=== PATIENT | female | born 1990 | race Caucasian/White ===

== ENCOUNTER 2025-02-24 10:48 | Observation (INO) | payer BC ==
[2025-02-24] MEDS ORDERED: RX INFO: IV CONTRAST WAS GIVEN 1 EACH MISC MISCELLANE PRN (11:27)
[2025-02-24] MEDS: PROPARACAINE 0.5% OPHTH DROPS 15 ML BTL LEFT EYE STA (11:34)
[2025-02-24] MEDS: FLUORESCEIN STRIPS 1 MG STRIP LEFT EYE ONE (11:34)
[2025-02-24 11:59] LABS: Basophils # (A) 0.07 10*3/uL (0.00-0.10); Basophils % (A) 0.8 %; Eosinophils # (A) 0.15 10*3/uL (0.04-0.35); Eosinophils % (A) 1.8 %; HCT 41.2 % (37.2-46.3); HGB 13.8 g/dL (12.0-15.0); Lymphocytes # (A) 2.30 10*3/uL (0.90-5.00); Lymphocytes % (A) 27.1 %; MCH 29.7 pg (27.0-32.0); MCHC 33.5 g/dL (32.0-37.0); MCV 88.6 fL (80.0-97.0); Monocytes # (A) 0.77 10*3/uL (0.20-1.00); Monocytes % (A) 9.1 %; Neutrophils # (A) 5.18 10*3/uL (1.80-7.70); Neutrophils % (A) 60.8 %; Platelet Count 405 10*3/uL (140-440); RBC 4.65 10*6/uL (4.10-5.20); RDW 13.4 % (11.5-14.5); WBC 8.50 10*3/uL (4.50-10.00)
--- NOTE | 2025-02-24 12:06 | ED ---
Eye Problem HPI - General Chief complaint: Eye Problems Stated complaint: L eye pain Time Seen by Provider: 02/24/25 12:00 Source: patient, RN notes reviewed Mode of arrival: ambulatory Limitations: no limitations - History of Present Illness Initial comments: 34-year-old female presenting for evaluation of left-sided vision loss x 1 week. She was sent by [facility] for possible optic neuritis on the left side. She does endorse pain with left eye movement. Describes sensation as though she is "looking through stained-glass". States she has never had this before. Denies injury or trauma to the head. [facility] reported that patient has a left eye optic disc edema with vision of 20/200 and a left RAPD and a left eye central island on visual field testing. Her motility is full but with pain with movement in the left eye. Past medical history significant for insulin resistance on Wegovy. She does have a family history of significant autoimmune diseases including family members with rheumatoid, Crohn's, and psoriasis. - Related Data Allergies Allergy/AdvReac Type Severity Reaction Status Date / Time No Known Allergies Allergy Verified 02/24/25 11:10 Review of Systems ROS Statement: Those systems with pertinent positive or pertinent negative responses have been documented in the HPI. ROS Other: All systems not noted in ROS Statement are negative. Past Medical History Past Medical History: No Reported History Past Surgical History: Cholecystectomy Smoking Status: Never smoker General Exam Limitations: no limitations General appearance: alert, in no apparent distress Head exam: Present: atraumatic, normocephalic, normal inspection Eye exam: Present: PERRL, EOMI. Absent: normal appearance (Pupils dilated bilaterally however was given dilation drops at eye doctor prior to arrival), scleral icterus, conjunctival injection, periorbital swelling ENT exam: Present: normal exam, mucous membranes moist Respiratory exam: Present: normal lung sounds bilaterally. Absent: respiratory distress, wheezes, rales, rhonchi, stridor Cardiovascular Exam: Present: regular rate, normal rhythm, normal heart sounds. Absent: systolic murmur, diastolic murmur, rubs, gallop, clicks Neurological exam: Present: alert, oriented X3, CN II-XII intact Psychiatric exam: Present: normal affect, normal mood Skin exam: Present: warm, dry, intact, normal color. Absent: rash Course Vital Signs 02/24/25 02/24/25 11:07 15:06 Temperature 97.9 F Pulse Rate 85 94 Respiratory 16 16 Rate Blood Pressure 147/86 150/82 O2 Sat by Pulse 99 100 Oximetry Medical Decision Making - Medical Decision Making Was pt. sent in by a medical professional or institution (ROMULO Maria, MEDICAL STAFF SPECIALIST, urgent care, hospital, or long term...) When possible be specific @ -Sent by [facility] for suspicion for optic neuritis on the left side Did you speak to anyone other than the patient for history (EMS, parent, family, police, friend...)? What history was obtained from this source @ -No Did you review nursing and triage notes (agree or disagree)? Why? @ -I reviewed and agree with nursing and triage notes Were old charts reviewed (outside hosp., previous admission, EMS record, old EKG, old radiological studies, urgent care reports/EKG's, long term records)? Report findings @ -No old charts were reviewed Differential Diagnosis (chest pain, altered mental status, abdominal pain women, abdominal pain men, vaginal bleeding, weakness, fever, dyspnea, syncope, headac he, dizziness, GI bleed, back pain, seizure, CVA, palpatations, mental health, musculoskeletal)? @ -Optic neuritis, multiple sclerosis, retinal detachment, amaurosis fugax, arterial anterior ischemic optic neuropathy EKG interpreted by me (3pts min.). @ -None X-rays interpreted by me (1pt min.). @ -None done CT interpreted by me (1pt min.). @ -CT brain and orbits reveals no acute process U/S interpreted by me (1pt. min.). @ -None done What testing was considered but not performed or refused? (CT, X-rays, U/S, labs)? Why? @ -None What meds were considered but not given or refused? Why? @ -None Did you discuss the management of the patient with other professionals (professionals i.e. ROMULO Maria, MEDICAL STAFF SPECIALIST, lab, RT, psych nurse, social service agency director, industrial diamond polisher, teacher, law enforcement officer, case picker)? Give summary @ -I spoke with Dr. Andrade and Dr. Hutchison on-call neurologist who accepts admission Was smoking cessation discussed for >3mins.? @ -No Was critical care preformed (if so, how long)? @ -No Were there social determinants of health that impacted care today? How? (Homelessness, low income, unemployed, alcoholism, drug addiction, transportation, low edu. Level, literacy, decrease access to med. care, senior care, rehab)? @ -No Was there de-escalation of care discussed even if they declined (Discuss DNR or withdrawal of care, Hospice)? DNR status @ -No What co-morbidities impacted this encounter? (DM, HTN, Smoking, COPD, CAD, Cancer, CVA, ARF, Chemo, Hep., AIDS, mental health diagnosis, sleep apnea, mor bid obesity)? @ -None Was patient admitted / discharged? Hospital course, mention meds given and rou te, prescriptions, significant lab abnormalities, going to OR and other pertinent info. @ -Admitted. 34-year-old female sent from [facility] for suspicion of optic neuritis on the left side. States she has been experiencing progressive vision loss in the left eye x 1 week. Visual acuity 20/200 in the left eye. Fluorescein stain negative for uptake. Average intraocular pressure on the left side is 10. Lab work largely unremarkable. CT brain and orbits reveals no acute process. Patient will be admitted to medicine with neurology consult for multiple sclerosis rule out and IV steroids. Case was discussed with my ED attending Dr. Tapia. Undiagnosed new problem with uncertain prognosis? @ -No Drug Therapy requiring intensive monitoring for toxicity (Heparin, Nitro, Insulin, Cardizem)? @ -No Were any procedures done? @ -No Diagnosis/symptom? @ -Left sided vision loss Acute, or Chronic, or Acute on Chronic? @ -Acute Uncomplicated (without systemic symptoms) or Complicated (systemic symptoms)? @ -Uncomplicated Side effects of treatment? @ -No Exacerbation, Progression, or Severe Exacerbation? @ -No Poses a threat to life or bodily function? How? (Chest pain, USA, SC, pneumonia, PE, COPD, DKA, ARF, appy, cholecystitis, CVA, Diverticulitis, Homicidal, Suicidal, threat to staff... and all critical care pts) @ -Yes - Lab Data Result diagrams: 02/24/25 11:46 02/24/25 11:46 Lab Results 02/24/25 02/24/25 Range/Units 11:46 11:46 WBC 8.50 (4.50-10.00) 10*3/uL RBC 4.65 (4.10-5.20) 10*6/uL Hgb 13.8 (12.0-15.0) g/dL Hct 41.2 (37.2-46.3) % MCV 88.6 (80.0-97.0) fL MCH 29.7 (27.0-32.0) pg MCHC 33.5 (32.0-37.0) g/dL Plt Count 405 (140-440) 10*3/uL MPV 8.9 L (9.5-12.2) fL Immature Gran % (Auto) 0.4 % Neutrophils % 60.8 % Lymphocytes % 27.1 % Monocytes % 9.1 % Eosinophils % 1.8 % Basophils % 0.8 % Immature Gran # 0.03 (0.00-0.04) 10*3/uL Neutrophils # 5.18 (1.80-7.70) 10*3/uL Lymphocytes # 2.30 (0.90-5.00) 10*3/uL Monocytes # 0.77 (0.20-1.00) 10*3/uL Eosinophils # 0.15 (0.04-0.35) 10*3/uL Basophils # 0.07 (0.00-0.10) 10*3/uL Sodium 141 (137-145) mmol/L Potassium 4.6 (3.5-5.1) mmol/L Chloride 104 (98-107) mmol/L Carbon Dioxide 25 (22-30) mmol/L Anion Gap 12 mmol/L BUN 18 H (7-17) mg/dL Creatinine 0.62 (0.52-1.04) mg/dL Est GFR (CKD-EPI)AfAm >90 (>60 ml/min/1.73 sqM) Est GFR (CKD-EPI)NonAf >90 (>60 ml/min/1.73 sqM) Glucose 88 (74-99) mg/dL Calcium 9.3 (8.4-10.2) mg/dL Total Bilirubin 0.6 (0.2-1.3) mg/dL AST 49 H (14-36) U/L ALT 49 H (4-34) U/L Alkaline Phosphatase 99 (38-126) U/L C-Reactive Protein 0.8 (<1.0) mg/dL Total Protein 8.0 (6.3-8.2) g/dL Albumin 4.7 (3.5-5.0) g/dL HCG, Qual Not Detected Disposition Clinical Impression: Vision loss of left eye Disposition: ADMITTED IP TO THIS HOSP Referrals: Anastasiia New MD [Primary Care Provider] - 1-2 days Time of Disposition: 15:39
[2025-02-24 12:07] LABS: HCG,Qualitative Serum Not Detected
[2025-02-24 12:12] LABS: ALT 49 U/L (4-34); African American GFR (CKD) >90 (>60 ml/min/1.73 sqM); Albumin 4.7 g/dL (3.5-5.0); Anion Gap 12 mmol/L; Blood Urea Nitrogen 18 mg/dL (7-17); Calcium 9.3 mg/dL (8.4-10.2); Carbon Dioxide 25 mmol/L (22-30); Chloride 104 mmol/L (98-107); Glucose 88 mg/dL (74-99); Non-African American GFR(CKD) >90 (>60 ml/min/1.73 sqM); Sodium 141 mmol/L (137-145); Total Protein 8.0 g/dL (6.3-8.2)
[2025-02-24 12:27] LABS: AST 49 U/L (14-36); Alkaline Phosphatase 99 U/L (38-126); Potassium 4.6 mmol/L (3.5-5.1)
--- NOTE | 2025-02-24 13:31 | CT ---
EXAMINATION TYPE: CT brain wo con DATE OF EXAM: 02/24/2025 COMPARISON: None CLINICAL INDICATION: Female, 34 years old with history of unilateral vision loss; PHH, 1097.8 CT DLP: 1097.8 mGycm Automated exposure control for dose reduction was used. Findings: The ventricles, basal cisterns and sulci over the convexities are within normal limits and there is n o mass effect or shift of midline structures. No abnormal density is seen throughout the brain parenchyma and there is no acute intra or extra-axia l hemorrhage. The posterior fossa including the brainstem, fourth ventricle and cerebellar pontine angles appear no rmal. Intraorbital contents appear normal and symmetric. There is a small air-fluid level in the sphenoid sinus consistent with acute sphenoid sinusitis. The mastoid air cells are well aerated. The calvarium is intact. IMPRESSION: 1. No acute bleed or mass effect. 2. Acute sphenoid sinusitis. [facility], Workstation: SAMIA 02/24/2025 1:28 PM
--- NOTE | 2025-02-24 13:34 | CT ---
CT orbits with contrast HISTORY: Left eye blindness which has developed over the last week. COMPARISON: None TECHNIQUE: Multiple axial images are obtained through the orbits with and without contrast. FINDINGS: The globes are normal and symmetric bilaterally. There is no intra or extraconal mass or pathological enhancement. The extraocular muscles are normal and symmetric. The optic nerves are normal and symme tric without mass or pathological enhancement. Cavernous sinuses are normal and symmetric. There is inflammatory change in the sphenoid sinus but the frontal, ethmoid and maxillary sinuses ar e well aerated. IMPRESSION: No significant abnormality of the orbits. [facility], , 02/24/2025 1:32 PM
[2025-02-24] MEDS ORDERED: NALOXONE 0.4 MG/ML 1 ML VIAL IV PRN (15:33)
[2025-02-24] MEDS ORDERED: ONDANSETRON 4 MG/2 ML VIAL IVP PRN (15:33)
[2025-02-24] MEDS: methylPREDNISolone SOD SUCCIN 250 MG in SODIUM CHLORIDE 0.9% 100 ML IVPB STA (17:05)
[2025-02-24] MEDS ORDERED: SODIUM CHLORIDE 0.9% IVPB STA (18:38)
[2025-02-24] MEDS ORDERED: METHYLPREDNISOLONE SOD SUCCIN IVPB STA (18:38)
--- NOTE | 2025-02-24 19:12 | P.CNNES ---
History of Present Illness Consult date: 02/24/25 Requesting physician: Mary Jaquez Reason for Consult: Left sided vision loss History of Present Illness: Patient is a 34-year-old right-handed female who has been referred by ophthalmology for acute optic neuritis left eye. Patient states that since middle of January 2025, she has been noticing left eye pain, feeling like a ripping pulling sensation behind the left eye. On 02/15/2025, she woke up and noted blurred vision in the center of the vision of the left eye. As the days progressed, it became more bigger and more spots appeared in the vision. She saw an bookkeepers supervisor, who referred her to an director audience marketing, who saw the patient this morning and diagnosed with left optic neuritis and referred the patient to the ER. Patient was noted to have left eye optic disc edema with vision of 20/200 in the left APD and a left eye central island on visual field testing. Her mobility is full but with pain on movement in the left eye. The rest of the dilated fundus examination is normal. Patient's history consist of insulin resistance and is on Wegovy. She does have family history significant for autoimmune disease including mother with rheumatoid arthritis, and some with Crohn's disease and psoriasis. Patient denies any numbness tingling focal weakness, vertigo, dizziness, nausea or vomiting. Patient denies any history of focal neurological symptoms ever in the past. She denies any tobacco alcohol use. Denies diabetes or hypertension. 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 Blood test shows normal CBC, basic metabolic panel with AST 49, ALT 49. CRP 0.8 which is normal and ESR is elevated 48/20. Patient had a CT of head which revealed no acute process. Acute sphenoid sinusitis. I personally reviewed CT head and looks like very mild findings of sphenoid sinusitis if at all. There is slight fluid in the left sphenoid sinus. CT of the orbits revealed no significant abnormality. Home medications include Wegovy, magnesium, Wellbutrin XL 300 mg daily, vitamin D3 and Crestor 20 mg. Review of Systems All pertinent positive and negative review of systems mentioned in the HPI, otherwise unremarkable. Past Medical History Past Medical History: No Reported History Past Surgical History: Cholecystectomy Smoking Status: Never smoker Medications and Allergies Home Medications Medication Instructions Recorded Confirmed Type Cholecalciferol (Vitamin D3) 50 mcg PO HS 02/24/25 02/24/25 History [Vitamin D3 (50 Mcg = 2000 Iu)] Magnesium Oxide [Magnesium] 500 mg PO HS 02/24/25 02/24/25 History Rosuvastatin [Crestor] 20 mg PO HS 02/24/25 02/24/25 History Semaglutide [Wegovy] 2.4 mg SQ WE 02/24/25 02/24/25 History buPROPion XL [Wellbutrin XL] 300 mg PO DAILY 02/24/25 02/24/25 History Allergies Allergy/AdvReac Type Severity Reaction Status Date / Time No Known Allergies Allergy Verified 02/24/25 15:56 Physical Examination - Vital Signs Vital Signs: Vital Signs Temp Pulse Resp BP Pulse Ox 02/24/25 17:42 97.9 F 76 18 133/81 100 02/24/25 15:06 94 16 150/82 100 02/24/25 11:07 97.9 F 85 16 147/86 99 Intake and Output 02/24/25 02/24/25 02/24/25 06:59 14:59 22:59 Other: Weight 102.965 kg Patient is a young female, very pleasant, in no acute distress. Patient is alert awake oriented to time place and person. Speech and language functions are normal. Patient can name and repeat very well. No aphasia or dysarthria. Attention, concentration and fund of knowledge is adequate. On cranial nerve examination, pupils are equal, round and reacting to light. Patient has very clear left APD. Her visual tirado are full on confrontation with the right eye, but the left eye has only residual vision in the very bottom part of the inferior visual field like a crescent in the lower part. Extraocular muscles are intact with no nystagmus. Face is symmetric, tongue protrudes to the midline. Palatal elevation and sensation normal, hearing and shoulder shrug normal, facial sensation normal. On muscle strength testing, there is no pronator drift and the strength is normal in arms and legs distally and proximally. Deep tendon reflexes are symmetric 1 at the biceps, 1 brachioradialis, 1+ at the knees, 1 ankles and plantars downgoing bilaterally. Sensory to touch is equal with no neglect on double simultaneous stimulation. Cerebellar function showed no ataxia for [id number] testing. No dysdiadochokinesia. No ataxia for [id number] testing on either side. Tone an d bulk of muscles normal. Gait deferred.. On general examination, there is no carotid bruit or murmur, S1-S2 audible. Chest is clear on consultation. Abdomen is soft nontender. No organomegaly, b owel sounds present. Peripheral pulses are present. No peripheral edema. Results - Laboratory Findings CBC and BMP: 02/24/25 11:46 02/24/25 11:46 Abnormal Lab Findings: Abnormal Labs 02/24/25 02/24/25 11:46 11:46 MPV 8.9 L ESR 48 H BUN 18 H AST 49 H ALT 49 H Assessment and Plan Assessment: * Acute left optic neuritis. Symptoms started about a month ago with painful eye movement, but developed progressive vision loss since 02/15/2025. Patient denies any prior history of focal neurological symptoms. Examination is normal except for left optic neuritis. * Hyperlipidemia * Obesity on Wegovy Plan: * MRI of the brain with and without contrast, rule out COMMUNICATION MANAGER demyelination, rule out MS.. Neurological examination is completely normal besides left optic neuritis. * Patient will undergo TAN level, NMO, lysozyme, QuantiFERON-TB gold, RPR, toxo antibodies, Lyme titer, Bartonella antibodies, B12, folate. * Solu-Medrol 1 g IVPB daily for 5 days. * Patient may need lumbar puncture. * Neurology will follow. Thank you for the consult.
[2025-02-24] MEDS: methylPREDNISolone SOD SUCCIN 750 MG in SODIUM CHLORIDE 0.9% 250 ML IVPB STA (21:08)
[2025-02-24] MEDS: MAGNESIUM OXIDE 400 MG TAB PO SCH (21:09)
[2025-02-24] MEDS: CHOLECALCIFEROL 25 MCG (1000 IU) TABLET PO SCH (21:09)
[2025-02-24] MEDS: ATORVASTATIN 40 MG TAB PO SCH (21:09)
[2025-02-25] MEDS ORDERED: methylPREDNISolone SOD SUCCIN 250 MG in SODIUM CHLORIDE 0.9% 100 ML IVPB SCH
--- NOTE | 2025-02-25 00:52 | P.HPIM ---
History of Present Illness This is a pleasant 34 years old female who was sent by her blueprint tracer for left eye blurred vision. Patient states that her vision has been blurred for more than a month but started getting more painful about 1 week ago. Denies any nausea or vomiting. No specific GI/ symptom. No chest pain or dyspnea. No headache dizziness weakness or numbness. Denies smoking alcohol or illicit drugs. She takes a statin Wegovy for weight loss. Vitamin D and multivitamin. She follow-up with her eye doctor outside the [facility] in [place] last month who referred her to Dr. Thao the polisher eyeglass frames who referred her to the emergency room Vitals stable patient afebrile labs unremarkable including CBC basic metabolic panel and LFT. Urine hCG is negative. CT of the head showing no acute hemorrhage or mass effect. Orbit CT showing no significant abnormality. Liver enzymes mildly elevated. Review of Systems Review of systems CONSTITUTIONAL: No fever, no malaise, no fatigue. HEENT: No recent hearing problems. Denied any sore throat. CARDIOVASCULAR: No orthopnea, PND, no palpitations, no syncope. PULMONARY: No shortness of breath, no cough, no hemoptysis. GASTROINTESTINAL: No diarrhea, no nausea, no vomiting, no abdominal pain. Normoactive bowel sounds. NEUROLOGICAL: No headaches, no weakness, no numbness. HEMATOLOGICAL: Denies any bleeding or petechiae. GENITOURINARY: Denies any burning micturition, frequency, or urgency. MUSCULOSKELETAL/RHEUMATOLOGICAL: Denies any joint pain, swelling, or any muscle pain. ENDOCRINE: Denies any polyuria or polydipsia. Past Medical History Past Medical History: No Reported History Past Surgical History: Cholecystectomy Smoking Status: Never smoker Medications and Allergies Home Medications Medication Instructions Recorded Confirmed Type Cholecalciferol (Vitamin D3) 50 mcg PO HS 02/24/25 02/24/25 History [Vitamin D3 (50 Mcg = 2000 Iu)] Magnesium Oxide [Magnesium] 500 mg PO HS 02/24/25 02/24/25 History Rosuvastatin [Crestor] 20 mg PO HS 02/24/25 02/24/25 History Semaglutide [Wegovy] 2.4 mg SQ WE 02/24/25 02/24/25 History buPROPion XL [Wellbutrin XL] 300 mg PO DAILY 02/24/25 02/24/25 History Allergies Allergy/AdvReac Type Severity Reaction Status Date / Time No Known Allergies Allergy Verified 02/24/25 15:56 Physical Exam Vitals: Vital Signs Temp Pulse Resp BP Pulse Ox 02/24/25 15:06 94 16 150/82 100 02/24/25 11:07 97.9 F 85 16 147/86 99 Intake and Output 02/24/25 02/24/25 02/24/25 06:59 14:59 22:59 Other: Weight 102.965 kg GENERAL: The patient is alert and oriented x3, not in any acute distress. Well developed, well nourished. HEENT: Pupils are round and equally reacting to light. EOMI. No scleral icterus. No conjunctival pallor. Normocephalic, atraumatic. No pharyngeal erythema. No thyromegaly. CARDIOVASCULAR: S1 and S2 present. No murmurs, rubs, or gallops. PULMONARY: Chest is clear to auscultation, no wheezing , no crackles. ABDOMEN: Soft, nontender, nondistended, normoactive bowel sounds. No palpable organomegaly. MUSCULOSKELETAL: No joint swelling or deformity. EXTREMITIES: No cyanosis, clubbing, or pedal edema. NEUROLOGICAL: Gross neurological examination did not reveal any focal deficits. SKIN: No rashes. no petechiae. Results CBC & Chem 7: 02/24/25 11:46 02/24/25 11:46 Labs: Abnormal Lab Results - Last 24 Hours (Table) 02/24/25 02/24/25 Range/Units 11:46 11:46 MPV 8.9 L (9.5-12.2) fL ESR 48 H (0-20) mm/Hr BUN 18 H (7-17) mg/dL AST 49 H (14-36) U/L ALT 49 H (4-34) U/L Assessment and Plan Assessment: Painful left eye with blurred vision suspicious for optic neuritis Mild transaminitis Obesity Plan: IV Solu-Medrol Neurology consult Pain management MRI of the brain. Further neurological workup is deferred to neurology service Patient was sent by her blueprint tracer to the hospital, recommended follow-up with her blueprint tracer upon discharge Further recommendation based on the clinical course DVT prophylaxis: Heparin GI prophylaxis: Pepcid Prognosis is guarded
[2025-02-25 02:23] LABS: Vitamin B12 1434.0 pg/mL (200.0-944.0)
[2025-02-25] MEDS: buPROPion XL 300 MG TAB.ER.24H PO SCH (08:39)
[2025-02-25 10:08] LABS: Lyme IgG/IgM .146
--- NOTE | 2025-02-25 10:11 | MR ---
EXAMINATION TYPE: MR brain wo/w con DATE OF EXAM: 02/25/2025 9:23 AM COMPARISON: 02/24/2025.. CLINICAL INDICATION: Female, 34 years old with history of Optic neuritis left, rule out MS; PHH, Opti c neuritis left, evaluate for MS. TECHNIQUE: Multi planar, multi sequence imaging was performed through the brain including: T1, T2, In version recovery, susceptibility weighted imaging and gradient echo imaging and Diffusion weighted im aging. The patient was then given intravenous contrast and multi planar, T1 fat-saturation images wer e obtained. IV Contrast: 10 mL Gadobutrol FINDINGS: The mathur-white junctions, ventricular system, basal cisterns appear unremarkable. Diffusion-weighted imaging shows no evidence of restricted diffusion to suggest acute/subacute infarct. Intracranial ar terial flow voids are maintained. Midline structures show no abnormality. The susceptibility weighted images do not reveal any evidence for micro-hemorrhage. After administration of gadolinium, no intra -axial abnormal enhancement is seen. The bone marrow signal is within normal limits. Paranasal sinuses and mastoid air cells: No significant paranasal sinus disease. Visualized orbits: Orbital contents are intact. Asymmetric enhancement of the left optic nerve. IMPRESSION: 1. Findings compatible with left optic neuritis. 2. No evidence of intracranial mass, acute/subacute infarct. [facility], , 02/25/2025 10:09 AM
[2025-02-25 10:22] LABS: Basophils # (A) 0.03 X 10*3/uL (0.00-0.10); Basophils % (A) 0.2 %; Eosinophils # (A) 0 X 10*3/uL (0.04-0.35); Eosinophils % (A) 0 %; HCT 43.3 % (37.2-46.3); HGB 13.7 g/dL (12.0-15.0); Immature Grans, Automated 0.70 %; Lymphocytes # (A) 0.98 X 10*3/uL (0.90-5.00); Lymphocytes % (A) 5.9 %; MCH 28.4 pg (27.0-32.0); MCHC 31.6 g/dL (32.0-37.0); MCV 89.8 FL (80.0-97.0); Monocytes # (A) 0.12 X 10*3/uL (0.20-1.00); Monocytes % (A) 0.7 %; NRBC Per 100 WBC 0 X 10*3/uL (0.00-0.01); Neutrophils # (A) 15.26 X 10*3/uL (1.80-7.70); Neutrophils % (A) 92.5 %; Platelet Count 409 X 10*3/uL (140-440); RBC 4.82 X 10*6/uL (4.10-5.20); RDW 13.6 % (11.5-14.5); WBC 16.50 X 10*3/uL (4.50-10.00)
[2025-02-25 10:31] LABS: ALT 57 U/L (8-44); AST 37 U/L (13-35); Albumin 4.5 g/dL (3.8-4.9); Albumin/Globulin Ratio 1.67 Ratio (1.60-3.17); Alkaline Phosphatase 113 U/L (41-126); Anion Gap 13.60 mmol/L (4.00-12.00); BUN/Creat Ratio 22.71 Ratio (12.00-20.00); Bilirubin,Unconjugated >0 mg/dL (0.20-1.00); Blood Urea Nitrogen 15.9 mg/dL (9.0-27.0); Calcium 9.4 mg/dL (8.7-10.3); Carbon Dioxide 22.4 mmol/L (21.6-31.8); Chloride 106 mmol/L (96-109); Globulin 2.7 g/dL (1.6-3.3); Glucose 169 mg/dL (70-110); Potassium 4.5 mmol/L (3.5-5.5); Sodium 142 mmol/L (135-145); Total Protein 7.2 g/dL (6.2-8.2)
[2025-02-25] MEDS: methylPREDNISolone SOD SUCCIN 1,000 MG in SODIUM CHLORIDE 0.9% 250 ML IVPB SCH (14:06)
--- NOTE | 2025-02-25 18:31 | P.PN ---
Subjective Progress Note Date: 02/25/25 Patient was seen for a follow-up. Patient states her vision is getting slightly better. The slight crescent of preserved vision in the lower visual field of the left eye has become more wider and it is coming more towards the midline. However the upper and the central vision is still gone out of left eye. No new concerns. She is tolerating Solu-Medrol well. Objective - Vital Signs Vital signs: Vital Signs Temp 97.5 F L 02/25/25 07:00 Pulse 115 H 02/25/25 07:00 Resp 14 02/25/25 07:00 BP 125/87 02/25/25 07:00 Pulse Ox 98 02/25/25 07:00 FiO2 Intake & Output 02/24/25 02/25/25 02/25/25 18:59 06:59 18:59 Intake Total 118 Balance 118 Weight 102.965 kg Intake: Oral 118 Other: Voiding Method Toilet Toilet # Voids 2 - Exam Patient continues to have left APD and visual field deficit of the left eye. Rest of the examination is nonfocal. - Labs CBC & Chem 7: 02/25/25 06:23 02/25/25 06:23 Labs: Abnormal Lab Results - Last 24 Hours (Table) 02/24/25 02/24/25 02/24/25 Range/Units 11:46 11:46 19:14 WBC (4.50-10.00) X 10*3/uL MCHC (32.0-37.0) g/dL MPV 8.9 L (9.5-12.2) fL Immature Gran # (0.00-0.04) X 10*3/uL Neutrophils # (1.80-7.70) X 10*3/uL Monocytes # (0.20-1.00) X 10*3/uL Eosinophils # (0.04-0.35) X 10*3/uL ESR 48 H (0-20) mm/Hr Anion Gap (4.00-12.00) mmol/L BUN 18 H (7-17) mg/dL BUN/Creatinine Ratio (12.00-20.00) Ratio Glucose (70-110) mg/dL Total Bilirubin (0.3-1.2) mg/dL Unconjugated Bilirubin (0.20-1.00) mg/dL AST 49 H (14-36) U/L ALT 49 H (4-34) U/L Vitamin B12 1434.0 H (200.0-944.0) pg/mL 02/25/25 02/25/25 Range/Units 06:23 06:23 WBC 16.50 H (4.50-10.00) X 10*3/uL MCHC 31.6 L (32.0-37.0) g/dL MPV (9.5-12.2) fL Immature Gran # 0.11 H (0.00-0.04) X 10*3/uL Neutrophils # 15.26 H (1.80-7.70) X 10*3/uL Monocytes # 0.12 L (0.20-1.00) X 10*3/uL Eosinophils # 0 L (0.04-0.35) X 10*3/uL ESR (0-20) mm/Hr Anion Gap 13.60 H (4.00-12.00) mmol/L BUN (7-17) mg/dL BUN/Creatinine Ratio 22.71 H (12.00-20.00) Ratio Glucose 169 H (70-110) mg/dL Total Bilirubin 0.2 L (0.3-1.2) mg/dL Unconjugated Bilirubin >0 L (0.20-1.00) mg/dL AST 37 H (14-36) U/L ALT 57 H (4-34) U/L Vitamin B12 (200.0-944.0) pg/mL Assessment and Plan Assessment: * Acute left optic neuritis. Symptoms started about a month ago with painful eye movement, but developed progressive vision loss since 02/15/2025. Patient denies any prior history of focal neurological symptoms. Examination is normal except for left optic neuritis. * Hyperlipidemia * Obesity on Wegovy Plan: * MRI of the brain with and without contrast, revealed asymmetric enhancement of the left optic nerve consistent with left optic neuritis. No evidence of intracranial mass or acute/subacute infarct. On my review, there is only 1 tiny nonspecific area of white matter lesion in the right frontal lobe. Otherwise no white matter lesions seen. No evidence of MS. * B12 1434, folate 25.20, DARRIUS negative, RPR negative, Lyme titer negative, hemoglobin A1c 5.1. Await TAN level, NMO, lysozyme, QuantiFERON-TB gold, toxo antibodies, Bartonella antibodies * Solu-Medrol 1 g IVPB daily for 5 days. Today patient completed day #2/5. * Discussed with patient about lumbar puncture and she flatly declined. Patient states her also had lumbar puncture to rule out MS and he developed severe headache and she declined. * DVT prophylaxis: Patient low risk, as she is completely ambulatory.
--- NOTE | 2025-02-25 19:11 | P.PN ---
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 Patient states that her vision has been blurred for more than a month but started getting more painful about 1 week ago. Denies any nausea or vomiting. No specific GI/ symptom. No chest pain or dyspnea. No headache dizziness weakness or numbness. Denies smoking alcohol or illicit drugs. She takes a statin Wegovy for weight loss. Vitamin D and multivitamin. She follow-up with her eye doctor outside the [facility] in [place] last month who referred her to Dr. Thao the software specialist who referred her to the emergency room Vitals stable patient afebrile labs unremarkable including CBC basic metabolic panel and LFT. Urine hCG is negative. CT of the head showing no acute hemorrhage or mass effect. Orbit CT showing no significant abnormality. Liver enzymes mildly elevated. 02/25 Patient was admitted for suspected left optic neuritis which is confirmed on the MRI of the brain, I discussed the case with neurology service who cleared for discharge on 3 more days of IV Solu-Medrol 1000 mg daily with midline placed and plan for discharge and then to follow-up by tapered dose of oral prednisone 60 mg daily x 5 days followed by tapering every 1 to 2 days x 10 mg, patient informed and she agrees However through the day her heart rates start to increase 115 and 222, EKG was done showing sinus tachycardia with heart rate of 114 and there is nonspecific ST-T changes, patient denies chest pain or dyspnea no headache or dizziness no diarrhea or vomiting. Her pain is controlled and therefore we are going to start the patient on fluid challenge for few hours and consult cardiology team for evaluation tomorrow morning patient informed with this update and the plan and she is agreeable to stay and see cardiology tomorrow while monitoring heart rate Active Medications Generic Name Dose Route Start Last Admin Trade Name Freq PRN Reason Stop Dose Admin Acetaminophen 650 mg 02/24/25 15:33 Acetaminophen Tab 325 Mg Tab PO Q6HR PRN Mild Pain or Fever > 100.5 Atorvastatin Calcium 40 mg 02/24/25 21:00 02/24/25 21:09 Atorvastatin 40 Mg Tab PO 40 mg HS MANSI Administration Bupropion HCl 300 mg 02/25/25 09:00 02/25/25 08:39 Bupropion Xl 300 Mg Tab.Er.24h PO 300 mg DAILY MANSI Administration Cholecalciferol 50 mcg 02/24/25 21:00 02/24/25 21:09 Cholecalciferol 25 Mcg (1000 Iu) Tablet PO 50 mcg HS MANSI Administration Methylprednisolone Sodium 250 mls @ 250 mls/hr 02/25/25 14:00 02/25/25 14:06 Succinate 1,000 mg/ Sodium IVPB 250 mls/hr Chloride DAILY@1400 MANSI Administration Sodium Chloride 1,000 mls @ 130 mls/hr 02/25/25 19:00 Saline 0.9% IV 02/26/25 06:59 .[id number] MANSI Magnesium Oxide 400 mg 02/24/25 21:00 02/24/25 21:09 Magnesium Oxide 400 Mg Tab PO 400 mg HS MANSI Administration Miscellaneous Information 1 each 02/24/25 11:27 Rx Info: Iv Contrast Was Given 1 Each Misc MISCELLANE 02/26/25 11:27 DAILY PRN Per Protocol Naloxone HCl 0.2 mg 02/24/25 15:33 Naloxone 0.4 Mg/Ml 1 Ml Vial IV Q2M PRN Opioid Reversal Ondansetron HCl 4 mg 02/24/25 15:33 Ondansetron 4 Mg/2 Ml Vial IVP Q8HR PRN Nausea And Vomiting Objective - Vital Signs Vital signs: Vital Signs Temp 98.3 F 02/25/25 14:49 Pulse 122 H 02/25/25 14:49 Resp 14 02/25/25 14:49 BP 146/78 02/25/25 14:49 Pulse Ox 99 02/25/25 14:49 FiO2 Intake & Output 02/24/25 02/25/25 02/25/25 18:59 06:59 18:59 Intake Total 118 Balance 118 Weight 102.965 kg Intake: Oral 118 Other: Voiding Method Toilet Toilet # Voids 2 4 - Exam GENERAL: The patient is alert and oriented x3, not in any acute distress. Well developed, well nourished. Obese HEENT: Pupils are round and equally reacting to light. EOMI. No scleral icterus. No conjunctival pallor. Normocephalic, atraumatic. No pharyngeal erythema. No thyromegaly. CARDIOVASCULAR: S1 and S2 present. No murmurs, rubs, or gallops. PULMONARY: Chest is clear to auscultation, no wheezing , no crackles. ABDOMEN: Soft, nontender, nondistended, normoactive bowel sounds. No palpable organomegaly. MUSCULOSKELETAL: No joint swelling or deformity. EXTREMITIES: No cyanosis, clubbing, or pedal edema. NEUROLOGICAL: Gross neurological examination did not reveal any focal deficits. SKIN: No rashes. no petechiae. - Labs CBC & Chem 7: 02/25/25 06:23 02/25/25 06:23 Labs: Abnormal Lab Results - Last 24 Hours (Table) 02/24/25 02/25/25 02/25/25 Range/Units 19:14 06:23 06:23 WBC 16.50 H (4.50-10.00) X 10*3/uL MCHC 31.6 L (32.0-37.0) g/dL Immature Gran # 0.11 H (0.00-0.04) X 10*3/uL Neutrophils # 15.26 H (1.80-7.70) X 10*3/uL Monocytes # 0.12 L (0.20-1.00) X 10*3/uL Eosinophils # 0 L (0.04-0.35) X 10*3/uL Anion Gap 13.60 H (4.00-12.00) mmol/L BUN/Creatinine Ratio 22.71 H (12.00-20.00) Ratio Glucose 169 H (70-110) mg/dL Total Bilirubin 0.2 L (0.3-1.2) mg/dL Unconjugated Bilirubin >0 L (0.20-1.00) mg/dL AST 37 H (13-35) U/L ALT 57 H (8-44) U/L Vitamin B12 1434.0 H (200.0-944.0) pg/mL Assessment and Plan Assessment: Painful left eye with blurred vision suspicious for optic neuritis Sinus tachycardia with some EKG changes, nonspecific ST-T changes Mild transaminitis Obesity Plan: IV Solu-Medrol to be followed by oral prednisone taper MRI of the brain reviewed Neurology consult. Neurology service have cleared patient for discharge Pain controlled Patient developed sinus tachycardia will check TSH and electrolytes tomorrow Cardiology consult in the morning The fluid challenge normal saline 130 mL/h x 12 hours Further neurological workup is deferred to neurology service Patient was sent by her director of dementia operations to the hospital, recommended follow-up with her director of dementia operations upon discharge Further recommendation based on the clinical course DVT prophylaxis: Heparin GI prophylaxis: Pepcid Prognosis is guarded Possible discharge in 24 to 48 hours if she keeps improving
[2025-02-25] MEDS: SODIUM CHLORIDE 0.9% 1,000 ML IV SCH (20:51)
[2025-02-26 04:24] LABS: Toxoplasma Antibody (IgG) <3.0 IU/mL (<7.2); Toxoplasma Antibody (IgM) <3.0 AU/mL (<8.0)
[2025-02-26 09:22] LABS: Magnesium 1.9 mg/dL (1.5-2.4); Potassium 4.2 mmol/L (3.5-5.5)
--- NOTE | 2025-02-26 11:42 | P.CRDCN ---
History of Present Illness Consult date: 02/26/25 History of present illness: This is a 34-year-old female with past medical history of hyperlipidemia. We have been asked to evaluate her for tachycardia and abnormal EKG. Patient states that she came into the hospital due to blurring but not 100%. She has been treated with high-dose IV steroids for left optic nerve neuritis. Patient denies chest pain, no chest pressure or tightness. She denies palpitations. She denies any syncopal episodes. She states she feels her heart rate goes up when she is receiving the IV steroids and that it comes down when the IV s teroids are finished. Blood pressure 145/77, heart rate 92-115, pulse ox 100% on room air. -EKG: Sinus tachycardia with no acute ST-T wave changes. -Laboratory studies: WBC 16.5 after steroids, he been 13.7. Potassium 4.2. Creatinine 0.7. TSH 0.259, normal free T41.17. -Home cardiac medications: Statin 20 mg at bedtime, magnesium 500 mg at bedtime, patient is also on Wegovy. Review Of Systems: At the time of my exam: CONSTITUTIONAL: Denies fever or chills. HEENT: Denies blurred vision, vision changes, or eye pain. Denies hemoptysis CARDIOVASCULAR: Denies chest pain. Denies orthopnea. Denies PND. Denies palpitations RESPIRATORY: Denies shortness of breath. GASTROINTESTINAL: Denies abdominal pain. Denies nausea or vomiting. HEMATOLOGIC: Denies bleeding disorders. GENITOURINARY: Denies any blood in urine. SKIN: Denies puritis. Denies rash. Physical examination: Gen: This is a 34-year-old female in no acute distress. VS: reviewed HEENT: Head is atraumatic, normocephalic. Pupils equal, round. Sclerae is anicteric. NECK: Supple. No JVD. LUNGS: Clear to auscultation. No wheezes or rhonchi. No intercostal retractions. HEART: Regular rate and rhythm. No murmur. ABDOMEN: Soft No tenderness. EXTREMITIES: No pedal edema. No calf tenderness. NEUROLOGICAL: Patient is awake, alert and oriented x3. Assessment: Left optic nerve neuritis Sinus tachycardia Plan: No cardiac workup necessary at this time Patient is cleared for discharge and will follow-up in the office for outpatient cardiac evaluation. Patient will be seen in the office by Dr. Darby in 1 week. Thank you kindly for this consultation. Nurse practitioner note has been reviewed, I agree with documented findings and plan of care. Patient was seen and examined. Past Medical History Past Medical History: No Reported History Additional Past Medical History / Comment(s): Hx of hypomagnesemia+hypokalemia with hospitalization, Left eye pain that progressed into vision loss History of Any Multi-Drug Resistant Organisms: None Reported Past Surgical History: Cholecystectomy Past Anesthesia/Blood Transfusion Reactions: No Reported Reaction Smoking Status: Never smoker Medications and Allergies Home Medications Medication Instructions Recorded Confirmed Type Cholecalciferol (Vitamin D3) 50 mcg PO HS 02/24/25 02/24/25 History [Vitamin D3 (50 Mcg = 2000 Iu)] Magnesium Oxide [Magnesium] 500 mg PO HS 02/24/25 02/24/25 History Rosuvastatin [Crestor] 20 mg PO HS 02/24/25 02/24/25 History Semaglutide [Wegovy] 2.4 mg SQ WE 02/24/25 02/24/25 History buPROPion XL [Wellbutrin XL] 300 mg PO DAILY 02/24/25 02/24/25 History predniSONE 10 mg PO DIRECTED #60 tab 02/25/25 Rx Allergies Allergy/AdvReac Type Severity Reaction Status Date / Time No Known Allergies Allergy Verified 02/24/25 15:56 Physical Exam Vitals: Vital Signs Temp Pulse Resp BP BP Pulse Ox 02/26/25 07:00 98.0 F 92 15 145/77 100 02/26/25 02:17 97.9 F 114 H 16 149/72 96 02/26/25 01:34 109 H 14 02/25/25 20:00 98.5 F 115 H 14 143/81 99 02/25/25 14:49 98.3 F 122 H 14 146/78 99 Intake and Output 02/25/25 02/26/25 02/26/25 22:59 06:59 14:59 Intake Total 358 Balance 358 Intake: Oral 358 Other: Voiding Method Toilet Toilet # Voids 1 1 Results 02/25/25 06:23 02/26/25 05:09 Cardiac Enzymes 02/25/25 Range/Units 06:23 AST 37 H (13-35) U/L CBC 02/25/25 Range/Units 06:23 WBC 16.50 H (4.50-10.00) X 10*3/uL RBC 4.82 (4.10-5.20) X 10*6/uL Hgb 13.7 (12.0-15.0) g/dL Hct 43.3 (37.2-46.3) % Plt Count 409 (140-440) X 10*3/uL Comprehensive Metabolic Panel 02/25/25 Range/Units 06:23 Sodium 142 (135-145) mmol/L Potassium 4.5 (3.5-5.5) mmol/L Chloride 106 (96-109) mmol/L Carbon Dioxide 22.4 (21.6-31.8) mmol/L BUN 15.9 (9.0-27.0) mg/dL Creatinine 0.7 (0.6-1.5) mg/dL Glucose 169 H (70-110) mg/dL Calcium 9.4 (8.7-10.3) mg/dL Unconjugated Bilirubin >0 L (0.20-1.00) mg/dL AST 37 H (13-35) U/L ALT 57 H (8-44) U/L Alkaline Phosphatase 113 (41-126) U/L Total Protein 7.2 (6.2-8.2) g/dL Albumin 4.5 (3.8-4.9) g/dL Current Medications Generic Name Dose Route Start Last Admin Trade Name Freq PRN Reason Stop Dose Admin Acetaminophen 650 mg 02/24/25 15:33 Acetaminophen Tab 325 Mg Tab PO Q6HR PRN Mild Pain or Fever > 100.5 Atorvastatin Calcium 40 mg 02/24/25 21:00 02/25/25 20:48 Atorvastatin 40 Mg Tab PO 40 mg HS MANSI Administration Bupropion HCl 300 mg 02/25/25 09:00 02/26/25 08:29 Bupropion Xl 300 Mg Tab.Er.24h PO 300 mg DAILY MANSI Administration Cholecalciferol 50 mcg 02/24/25 21:00 02/25/25 20:48 Cholecalciferol 25 Mcg (1000 Iu) Tablet PO 50 mcg HS MANSI Administration Methylprednisolone Sodium 250 mls @ 250 mls/hr 02/25/25 14:00 02/25/25 14:06 Succinate 1,000 mg/ Sodium IVPB 250 mls/hr Chloride DAILY@1400 MANSI Administration Magnesium Oxide 400 mg 02/24/25 21:00 02/25/25 20:48 Magnesium Oxide 400 Mg Tab PO 400 mg HS MANSI Administration Miscellaneous Information 1 each 02/24/25 11:27 Rx Info: Iv Contrast Was Given 1 Each Misc MISCELLANE 02/26/25 11:27 DAILY PRN Per Protocol Naloxone HCl 0.2 mg 02/24/25 15:33 Naloxone 0.4 Mg/Ml 1 Ml Vial IV Q2M PRN Opioid Reversal Ondansetron HCl 4 mg 02/24/25 15:33 Ondansetron 4 Mg/2 Ml Vial IVP Q8HR PRN Nausea And Vomiting Intake and Output 02/25/25 02/26/25 02/26/25 22:59 06:59 14:59 Intake Total 358 Balance 358 Intake: Oral 358 Other: Voiding Method Toilet Toilet # Voids 1 1 02/25/25 06:23 02/25/25 06:23
[2025-02-26] MEDS: ACETAMINOPHEN TAB 325 MG TAB PO PRN (12:02)
[2025-02-26 15:09] VITALS: BP 134/76; PULSE 89; RESP 14; TEMP 97.5
--- NOTE | 2025-02-27 | P.DS ---
Providers Date of admission: 02/24/25 16:31 Attending physician: Garrett Andrade MD Consults: 02/24/25 15:33 Consult Physician Urgent Consulting Provider: Santosh Hutchison Consult Reason/Comments: Left sided vision loss Do you want consulting provider notified?: Yes 02/25/25 18:49 Consult Physician Routine Consulting Provider: Tate Darby Consult Reason/Comments: tachycardia, also abn ekg Do you want consulting provider notified?: Yes, Notify in am Primary care physician: Anastasiia New MD Hospital Course: Diagnoses: Painful left eye with blurred vision suspicious for optic neuritis Sinus tachycardia with some EKG changes, nonspecific ST-T changes. Evaluated by playground supervisor and cleared for discharge Sinus tachycardia could be multifactorial secondary to her optic neuritis anxiety medication and diarrhea. Improved Mild transaminitis Obesity Hospital course: This is a pleasant 34 years old female who was sent by her rejector for left eye blurred vision. Patient states that her vision has been blurred for more than a month but started getting more painful about 1 week ago.. Her rejector sent her to the hospital for optic neuritis. MRI of the brain confirmed the diagnosis and patient evaluated by neurologist and started on 5 days of IV Solu-Medrol 1000 mg daily, patient want to be discharged show midline was placed and the patient will follow-up with infusion center for the following 2 days to finish her course after that she was started with oral antibiotics prednisone taper per recommendation of neurologist exactly as instructed. Prescription provided for patient with instruction and she is agreeable. Prior to discharge yesterday she developed tachycardia so discharge was held for over 24 hours until eval by playground supervisor today who cleared her for discharge for outpatient echocardiogram. Patient denies any other new complaints today and she is eager to be discharged. Get up and go test is normal Patient was cleared for discharge by all consultants Problems and management plan were discussed with the patient and he verbalized understanding and acceptance Patient was found stable and can be discharged home in guarded prognosis however he needs follow-up as an outpatient. Patient was instructed to follow up with PCP within one week and patient agrees Patient was instructed to follow-up with neurologist, Dr. west as i suggested for her. She agrees. Also patient was asked to follow-up with playground supervisor Dr. Jeffries in 1 week and she agrees Physical exam Gen: patient is a AAOx3, no distress CVS: S1-S2, RRR, no murmur Lungs: B/L CTA, no wheezing Abdomen: soft, no distention, no tenderness, positive bowel sounds Extremity: no leg edema or induration -Neuro: Blurred vision left eye, improving. Other current nerves are grossly intact. Sensation is intact. Motor 5/5 Time spent more than 35 minutes Patient Condition at Discharge: Fair Plan - Discharge Summary Discharge Rx Participant: Yes New Discharge Prescriptions: New predniSONE 10 mg PO DIRECTED #60 tab Continue Semaglutide [Wegovy] 2.4 mg SQ WE Magnesium Oxide [Magnesium] 500 mg PO HS buPROPion XL [Wellbutrin XL] 300 mg PO DAILY Cholecalciferol (Vitamin D3) [Vitamin D3 (50 Mcg = 2000 Iu)] 50 mcg PO HS Rosuvastatin [Crestor] 20 mg PO HS Discharge Medication List Cholecalciferol (Vitamin D3) [Vitamin D3 (50 Mcg = 2000 Iu)] 50 mcg PO HS 02/24/25 [History] Magnesium Oxide [Magnesium] 500 mg PO HS 02/24/25 [History] Rosuvastatin [Crestor] 20 mg PO HS 02/24/25 [History] Semaglutide [Wegovy] 2.4 mg SQ WE 02/24/25 [History] buPROPion XL [Wellbutrin XL] 300 mg PO DAILY 02/24/25 [History] predniSONE 10 mg PO DIRECTED #60 tab 02/25/25 [Rx] Follow up Appointment(s)/Referral(s): Tate Darby MD [STAFF PHYSICIAN] - 1 Week (Office will call patient with date and time of appointment) Jessica West MD [Medical Doctor] - 10 Days (neurologist please call for an appointment ) Anastasiia New MD [Primary Care Provider] - 1-2 days & [facility]fusion[facility] Procedures [REFERRING] - 02/27/25 10:00 am (out pt pam ) Patient Instructions/Handouts: Understanding Your Vision (GEN), Optic Neuritis (DC), Your Vision (GEN) Activity/Diet/Wound Care/Special Instructions: Resume previous diet Activity restricted close see your doctor please discontinue midline once you finish your IV steroid injections In 3 to 4 days You will be discharged on IV Solu-Medrol 1000 mg x 3 days through your left arm midline Please discontinue the cath including infection and sepsis After you finish your dose of IV Solu-Medrol start taking prednisone taper starting 60 mg p.o. daily, then taper as instructed Your thyroid test was slightly abnormal, we recommend to recheck thyroid function test in 1 month to 2 months Discharge Disposition: HOME SELF-CARE
--- NOTE | 2025-02-27 17:18 | P.PN ---
Subjective Progress Note Date: 02/26/25 Patient was seen for a follow-up. Patient states her vision is getting even further better. The slight crescent of preserved vision in the lower visual field of the left eye has become more wider and it is coming more towards the midline. She can see some parts in the upper visual field of the left eye. She is seeing some black patches but overall improving. No new concerns. She is tolerating Solu-Medrol well. Objective - Vital Signs Vital signs: Vital Signs Temp 98.0 F 02/26/25 07:00 Pulse 92 02/26/25 07:00 Resp 15 02/26/25 07:00 BP 145/77 02/26/25 07:00 Pulse Ox 100 02/26/25 07:00 FiO2 Intake & Output 02/25/25 02/26/25 02/26/25 18:59 06:59 18:59 Intake Total 476 Balance 476 Intake: Oral 476 Other: Voiding Method Toilet Toilet # Voids 4 1 - Exam Patient continues to have left APD and visual field deficit of the left eye. Rest of the examination is nonfocal. - Labs CBC & Chem 7: 02/25/25 06:23 02/26/25 05:09 Labs: Abnormal Lab Results - Last 24 Hours (Table) 02/26/25 Range/Units 05:09 TSH 0.259 L (0.350-5.500) UIU/ML Assessment and Plan Assessment: * Acute left optic neuritis. Symptoms started about a month ago with painful eye movement, but developed progressive vision loss since 02/15/2025. Patient denies any prior history of focal neurological symptoms. Examination is no rmal except for left optic neuritis. * Hyperlipidemia * Obesity on Wegovy Plan: * MRI of the brain with and without contrast, revealed asymmetric enhancement of the left optic nerve consistent with left optic neuritis. No evidence of intracranial mass or acute/subacute infarct. On my review, there is only 1 tiny nonspecific area of white matter lesion in the right frontal lobe. Otherwise no white matter lesions seen. No evidence of MS. * B12 1434, folate 25.20, DARRIUS negative, RPR negative, Lyme titer negative, hemoglobin A1c 5.1. Toxoplasma IgG and IgM normal. QuantiFERON-TB gold negative. TAN level normal 38. Await lysozyme, Bartonella antibodies and NMO antibodies * Solu-Medrol 1 g IVPB daily for 5 days. Today patient completed day #3/5. * Discussed with patient about lumbar puncture and she flatly declined. Patient states her also had lumbar puncture to rule out MS and he developed severe headache and she declined. * DVT prophylaxis: Patient low risk, as she is completely ambulatory. * Patient being discharged, and will follow-up with neurologist. We will follow pending blood test as above.
[2025-02-28 03:34] LABS: Bartonella henselae Ab, IgG <1:64; Bartonella henselae Ab, IgM < 1:16
== END 2025-02-26 15:42 | disposition home or self-care (01) ==
LOC: EC 10:48 → 6NMEDSUR 16:31 → UNDODISOB 02-26 12:27
PROVIDERS: ADMIT Internal Medicine; ATTEND Internal Medicine
DX: H57.12 Ocular pain, left eye (principal); H53.8 Other visual disturbances; H54.62 Unqualified visual loss, left eye, normal vision right eye; R00.0 Tachycardia, unspecified; R74.01 Elevation of levels of liver transaminase levels; E78.5 Hyperlipidemia, unspecified; E66.9 Obesity, unspecified; Z68.36 Body mass index [BMI] 36.0-36.9, adult; Z79.899 Other long term (current) drug therapy
CPT/HCPCS: 96365 ×2; 96366; 99285; 36415; 36410; 76937; 86778; 85549; 84439; 86777; 80053; 80048; 80076; 85652; 86611 ×2; 84443; 82607; 82746; 82164; 83735; 84132; 85025 ×2; 86140; 84703; 86618; 86780; 86038; 86480; 83036; 70450; 70481; 70553; G0378 ×3; C1751; Q9967; A9585; J2919 ×4